=== PATIENT | male | born 1970 | race Two or more races ===

== ENCOUNTER 2023-02-11 06:10 | Day surgery (SDC) | payer OTHER ==
[2023-02-05 11:23] LABS: URINE APPEARANCE Clear; URINE BILIRRUBIN Negative (NEGATIVE); URINE BLOOD Negative; URINE COLOR Yellow; URINE GLUCOSE Negative (NEGATIVE); URINE LEUKOCYTE Negative; URINE NITRATE Negative; URINE PROTEIN Negative (NEGATIVE); URINE UROBILINOGEN 0.2 E.U./dl
[2023-02-05 11:24] LABS: HEMATOCRIT 44.9 % (39.0-48.0); HEMOGLOBIN 15.4 g/dL (13-16.00); MEAN CELL VOLUME 91.2 fL (80.0-100.00); MEAN CORPUSCULAR HEMOGLOBIN 31.3 pg (27.00-32.0); MEAN CORPUSCULAR HGB CONC 34.3 g/dl (32.0-36.0); PLATELET COUNT 242 K/uL (150-450); RED BLOOD COUNT 4.93 M/uL (4.00-6.00); RED CELL DISTRIBUTION WIDTH 12.9 % (11.5-14.5)
[2023-02-05 11:27] LABS: URINE RBC 4.3 uL (0.0-20.8); URINE WBC 1.8 uL (0.0-23.2)
[2023-02-05 11:32] LABS: URINE BACTERIA 2.4 uL (0.0-1933)
[2023-02-05 11:56] LABS: ALBUMIN 3.9 gm/dL (3.4-5.0); BILIRUBIN TOTAL 0.69 mg/dL (0.3-1.2); CALCIUM 9.4 mg/dL (8.5-10.1); CREATININE SERUM 1.2 mg/dL (0.70-1.30); GFR 63.83; GLOBULINA 3.6 G/DL (2.4-3.5); POTASSIUM 4.55 mEq/L (3.5-5.1); TOTAL PROTEIN 7.5 gm/dL (6.4-8.2)
[2023-02-05 11:59] LABS: INR 1.05
[~2023-02-11] VITALS: Ht 170.2 cm; Wt 74.8 kg
== END 2023-02-11 14:30 | disposition home or self-care (01) ==
LOC: CIR.AMB 06:10
PROVIDERS: ATTEND Surgery
DX: L72.0 Epidermal cyst (principal); D49.89 Neoplasm of unspecified behavior of other specified sites; R22.2 Localized swelling, mass and lump, trunk; Z20.822 Contact with and (suspected) exposure to COVID-19